=== PATIENT | female | born 1975 | race Caucasian/White ===

== ENCOUNTER 2025-01-14 14:22 | Outpatient (CLI) | payer OTHER ==
[~2025-01-14] VITALS: Ht 165.1 cm; Wt 69.5 kg
[~2025-01-14 14:22] MED LIST: ALBUTEROL SULFATE 2.5 MG/0.5 ML INH CONCENTRATE NEB SOLN INH PRN; EPINEPHrine INJ 1 MG/ML 1ML AMP IM PRN; diphenhydrAMINE 50 MG/ML VIAL IV PRN
[2025-01-14 15:00] VITALS: BP 136/64; O2SAT 100
[2025-01-14] MEDS: FERRIC CARBOXYMALTOSE 750 MG (VIAL MATE) IN 100ML NS IV ONE (15:11)
[2025-01-14] MEDS ORDERED: SYNT75TA PO (15:19)
[2025-01-14] MEDS ORDERED: BUPR-766 PO (15:19)
[2025-01-14] MEDS ORDERED: NALT50TA4 PO (15:19)
[2025-01-14] MEDS ORDERED: METF-838 PO (15:19)
[2025-01-14 15:58] VITALS: BP 135/70; O2SAT 100
== END 2025-01-14 15:55 | disposition home or self-care (01) ==
LOC: M INFU 14:22
PROVIDERS: ATTEND Internal Medicine
DX: D50.9 Iron deficiency anemia, unspecified (principal); Z88.5 Allergy status to narcotic agent
CPT/HCPCS: 96365; J1439

== ENCOUNTER → 2025-01-21 | Outpatient (CLI) | payer OTHER ==
[~2025-01-21] VITALS: Ht 162.6 cm; Wt 69.5 kg
[~2025-01-21] MED LIST changes: +BUPR-766 PO; +FERR325T19 PO; +METF-838 PO; +NALT50TA4 PO; +NORE5TAB PO; +SYNT75TA PO; +VITA500T9 PO
[2025-01-21 14:50] VITALS: BP 148/75; O2SAT 100
[2025-01-21] MEDS: FERRIC CARBOXYMALTOSE 750 MG (VIAL MATE) IN 100ML NS IV ONE (15:00)
[2025-01-21 15:23] VITALS: BP 131/81; O2SAT 100
== END ==
LOC: M INFU 14:22 → EDUNIT# 15:00
PROVIDERS: ATTEND Internal Medicine
DX: D50.9 Iron deficiency anemia, unspecified (principal); Z88.5 Allergy status to narcotic agent
CPT/HCPCS: 96365; J1439

== ENCOUNTER 2025-01-29 07:21 | Day surgery (SDC) | payer OTHER ==
[~2025-01-29] VITALS: Ht 162.6 cm; Wt 68.5 kg
[~2025-01-29 07:21] MED LIST changes: -ALBUTEROL SULFATE 2.5 MG/0.5 ML INH CONCENTRATE NEB SOLN INH PRN; -EPINEPHrine INJ 1 MG/ML 1ML AMP IM PRN; +KETOROLAC 30 MG/ML 1 ML VIAL As Ordered ONE; +LIDOCAINE 2% 100 MG/5 ML SDV (FOR ANES.) As Ordered ONE; +ONDANSETRON 4MG/2ML VIAL As Ordered ONE; +dexAMETHasone 4 MG/ML 1 ML VIAL As Ordered ONE; -diphenhydrAMINE 50 MG/ML VIAL IV PRN
[2025-01-29] MEDS ORDERED: MIDAZOLAM INJ 2 MG/2 ML VIAL As Ordered ONE (07:43)
[2025-01-29] MEDS: SCOPOLAMINE 1MG TRANSDERMAL PATCH TOP ONE (07:50)
[2025-01-29] MEDS: ACETAMINOPHEN 500 MG TAB PO ONE (07:50)
[2025-01-29 08:13] LABS: PLATELET COUNT, AUTOMATED 251 10^3/uL (150-450)
[2025-01-29] MEDS: LIDOCAINE 1% SDV 30 ML VIAL As Ordered ONE (09:04)
[2025-01-29 09:15] LABS: PLATELET COUNT, AUTOMATED 222 10^3/uL (150-450)
[2025-01-29] MEDS: SILVER NITRATE APPLICATOR (1 = QTY 10) As Ordered ONE (10:01)
[2025-01-29] MEDS ORDERED: ONDANSETRON 4MG/2ML VIAL IV PRN (10:25)
[2025-01-29] MEDS ORDERED: TRANEXAMIC ACID 100 MG/ML 10ML VIAL As Ordered ONE (10:38)
[2025-01-29] MEDS: TRANEXAMIC ACID INJection 1,000 MG in D5W 100 ML IV ONE (10:40)
[2025-01-29 11:48] VITALS: BP 137/76; TEMP 98.8; O2SAT 100
== END 2025-01-29 12:00 | disposition home or self-care (01) ==
LOC: M SDC 07:21 → EDUNIT# 12:15
PROVIDERS: ATTEND General Practice
DX: D25.0 Submucous leiomyoma of uterus (principal); N93.9 Abnormal uterine and vaginal bleeding, unspecified; E03.9 Hypothyroidism, unspecified; D64.9 Anemia, unspecified; Z79.890 Hormone replacement therapy; Z79.899 Other long term (current) drug therapy; Z90.89 Acquired absence of other organs; Z88.5 Allergy status to narcotic agent
CPT/HCPCS: 36415; 58561; 81025; 85027; 86850; 86900; 86901; 88305; J1100; J1885; J2250; J2405; J3010